=== PATIENT | male | born 1985 | race Caucasian/White ===

== ENCOUNTER 2017-02-23 15:59 | Emergency (ER) | payer OTHER ==
[~2017-02-23] VITALS: Ht 180.3 cm; Wt 96.5 kg
[2017-02-23 16:03] VITALS: BP 148/107; PULSE 107; RESP 16; O2SAT 98
--- NOTE | 2017-02-23 16:30 | ED.REPORT ---
HPI-General Illness Date of Service February 23, 2017 ED Provider: Marcia Guerra MD The patient is a 31 year old male who presents to the emergency department requesting medical clearance for detox. The patient drove himself to [facility] services stating he was suicidal and wanted help getting over his addiction to alcohol and opiates. A [employer] employee actually brought the patient to the emergency department for his safety. His breathalyzer at [facility] was 0.390. At this time he agrees to be safe in the department. Nursing Notes Stated Complaint: DETOX Chief Complaint: Substance Abuse Nursing Notes Reviewed: Yes Allergies: Coded Allergies: No Known Allergies (Unverified , 02/23/17) General Time Seen by MD: 16:29 Chief Complaint Other (medical clearance for detox) Hx Obtained From: Patient Arrived By: Walk-in Sudden in Onset?: No Onset Occurred: More than a week ago... Symptom Duration: Since onset Severity: Current: No pain currently Severity: Maximum: No pain Recent Healthcare: No recent doctor visit, No recent hospitalization Similar Sx Previous: Yes Past Medical History Past Medical History Hx of alcohol and opiate abuse Family History Noncontributory Smoking History Unknown if Ever Smoker Social History Other Social History: Local resident Ambulatory Status Independent Review of Systems Full Review of Systems Psychiatric: Reports: Anxiety, Stress, Suicidal ideation Complete sys rev & neg: except as marked. Physical Exam Vital Signs Vital Signs Date Time Temp Pulse Resp B/P Pulse Ox O2 Delivery O2 Flow Rate FiO2 02/23/17 17:30 36.4 107 16 148/107 98 Room Air 02/23/17 16:03 36.4 107 16 148/107 98 Room Air Initial VS: Reviewed Head / Eyes: Atraumatic, Normocephalic, PERRL ENT: Mucous membranes moist, Conjunctiva normal, No scleral icterus Neck: Supple, Non-tender, Full range of motion Respiratory: No respiratory distress Extremities: Vascular intact, Neuro intact, No swelling, No tenderness Skin: Warm, Dry, No cyanosis Neurologic: Alert, Oriented, Nonfocal General/Constitutional: Awake, Alert Psychiatric: Affect NL, Mood NL, Not suicidal, Not homicidal, Cognitive function NL The patient denies suicidal thoughts at this time. Interpretation & Diagnostics Lab Results Interpretation Result Diagram: 02/23/17 1645 02/23/17 1645 Test 02/23/17 16:45 White Blood Count 6.9th/mm3 (3.8-10.1) Red Blood Count 5.49mil/mm3 (4.40-5.80) Hemoglobin 16.9g/dL (13.8-17.2) Hematocrit 46.9% (41.0-50.0) Mean Corpuscular Volume 85.4fL (81-100) Mean Corpuscular Hemoglobin 30.8pg (27.0-35.0) Mean Corpuscular Hemoglobin Concent 36.0% (32.0-37.0) Red Cell Distribution Width 12.0% (12.3-15.4) Platelet Count 284bil/L (150-400) Neutrophils (%) (Auto) 69.2% (40-74) Lymphocytes (%) (Auto) 19.4% (14-46) Monocytes (%) (Auto) 10.4% (4-12) Eosinophils (%) (Auto) 0.4% (0-5) Basophils (%) (Auto) 0.3% (0-3) Sodium Level 139mEq/L (134-144) Potassium Level 3.7mEq/L (3.5-5.2) Chloride Level 98mEq/L (97-108) Carbon Dioxide Level 20mmol/L (18-29) Blood Urea Nitrogen 11mg/dL (6-20) Creatinine 1.08mg/dL (0.76-1.27) Estimat Glomerular Filtration Rate 84mL/min (>59) Glucose Level 123mg/dL (60-99) Calcium Level 9.0mg/dL (8.5-10.1) Total Bilirubin 0.4mg/dL (0.0-1.2) Aspartate Amino Transf (AST/SGOT) 131U/L (0-50) Alanine Aminotransferase (ALT/SGPT) 129U/L (0-44) Alkaline Phosphatase 93U/L (25-150) Total Protein 7.2g/dL (6.4-8.4) Albumin 4.4g/dL (3.4-5.0) Thyroid Stimulating Hormone (TSH) 1.650uIU/mL (0.450-4.500) Hold Collins Top Tube Received (Received) Re-Eval/Medical Decision Med Decision/Clinical Course Treatment over here from [facility] by staff at [facility]. Apparently drove to [facility] asking for acute help was found to be acutely intoxicated with a breathalyzer level of 0.39. Anytime he is in the emergency room with staff from [facility] he is cooperative stating that he is not interested in hurting himself at this point but is at the bottom and is looking for help. We discussed going to crisis respite and he would be interested in that. Shortly after the [facility] health worker has left he becomes angry, demanding his clothes back wants to know why he is waiting in the room for as long as he is and demands to leave. We discussed the options including leaving. He states he has alcohol at home and he will be just fine. I pointed out that he came to the ER to get away from the alcohol in the first place. He says I do not care I do not want to stop drinking anymore are not to hurt myself and he proceeds to leave the emergency department. He is given the phone number for crisis respite and encouraged to follow up should he can be interested in getting help with sobriety Time of Eval: 17:18 Re-Evaluation/Progress Note: The patient is becoming agitated and would like to leave. He would like to leave right now. He is no longer willing to stay or to consider stopping drinking. Counseled Regarding: Diagnosis, Need for follow-up, When/why to return to ED Discharge & Departure Primary Impression: Alcohol abuse Additional Impressions: Substance abuse Suicidal ideations Disposition: Home Discharge Condition All VS Reviewed: Yes Condition: Stable Patient Instructions: Abuse of Alcohol (ED) Additional Instructions: I am sorry you have changed your mind as you are sobering up. If you decide you do want help with getting through your withdrawal you can certainly call crisis respite at or return to the emergency department. If you feel like you are going to hurt yourself please consider coming back. [employer] Portions of this note were transcribed by Erna Fallon. I, Dr. Guerra, personally performed the history, physical exam and medical decision-making; I reviewed and confirmed the accuracy of the information in the transcribed note. Signed by: Reese Rodas, 02/23/2017 and Marcia Guaman MD February 23, 2017 16:30 Vasyl,Erna Galloway February 23, 2017 16:35
[2017-02-23 16:56] LABS: BASOPHILS % (AUTO) 0.3 % (0-3); EOSINOPHILS % (AUTO) 0.4 % (0-5); MONOCYTES % (AUTO) 10.4 % (4-12); Mean Corpuscular Hemoglobin 30.8 pg (27.0-35.0); Mean Corpuscular Volume 85.4 fL (81-100); NEUTROPHILS % (AUTO) 69.2 % (40-74); Platelet Count 284 bil/L (150-400)
[2017-02-23 17:30] VITALS: BP 148/107; PULSE 107; RESP 16; O2SAT 98
== END 2017-02-23 17:30 | disposition home or self-care (01) ==
LOC: SED 17:30
DX: F10.10 Alcohol abuse, uncomplicated (principal); F15.10 Other stimulant abuse, uncomplicated; R45.851 Suicidal ideations